=== PATIENT | male | born 1985 | race Caucasian/White ===

== ENCOUNTER 2018-11-14 10:56 | Emergency (ER) | payer OTHER ==
[~2018-11-14] VITALS: Ht 170.2 cm; Wt 72.7 kg
[2018-11-14 11:04] VITALS: Ht 170.2 cm; Wt 72.7 kg
[2018-11-14] MEDS ORDERED: ACETAMINOPHEN 500 MG TAB PO STA (11:55)
[2018-11-14] MEDS ORDERED: ACET500C5 PO (13:11)
--- NOTE | 2018-11-14 13:20 | ERD ---
ER Documentation Chief Complaint Chief Complaint MECHANICAL FALL X 2 DAYS AGOPAIN LEFT KNEE AND ANKLE HPI Patient is a 33-year-old male with history of homelessness and addiction problems brought in by sister who presents to the ER for concerns of left ankle pain and knee pain. Patient states he fell. Per patient's sister, patient showed up at her house earlier today. Patient reported that he had knee and ankle pain, a sister brought him to the ER. Patient sister states that the patient has been homeless for 3 years. Patient often disappears. Patient's sister states she will take him home today and help him clean up. She is requesting that he be given resources for substance abuse and would like to speak to a social work job titles. Patient has no fevers or chills. Patient has no chest pain or shortness of breath. Patient denies any head injuries. Per patient's sister, patient is acting appropriately except for his pain to his left knee and ankle. ROS All systems reviewed and are negative except as per history of present illness. Medications Home Meds Active Scripts Acetaminophen* (Tylophen*) 500 Mg Capsule, 1 CAP PO Q6H PRN for PAIN AND OR E LEVATED TEMP, #20 CAP Prov:ESPERANZA CALLES PA-C 11/14/18 Allergies Allergies: Coded Allergies: No Known Allergy (Unverified , 11/14/18) PMhx/Soc Medical and Surgical Hx: pt denies Medical Hx, pt denies Surgical Hx Hx Alcohol Use: No Hx Substance Use: No Hx Tobacco Use: No Smoking Status: Never smoker FmHx Family History: No diabetes Physical Exam Vitals Vital Signs Date Temp Pulse Resp B/P (MAP) Pulse Ox O2 O2 Flow FiO2 Time Delivery Rate 11/14/18 37.0 12:06 11/14/18 98.6 105 18 132/69 98 11:04 (90) Physical Exam GENERAL: Disheveled male. Appears in no acute distress. Speaking in full sentences, answering questions appropriately. HEAD: Normocephalic, atraumatic. ENT: Moist mucous membranes. No uvula deviation. No kissing tonsils. NECK: Supple. No meningismus. Normal range of motion of the neck. LUNG: Clear to auscultation bilaterally. No rhonchi, wheezing, rales or coarse breath sounds. HEART: Regular rate and rhythm. No murmurs, rubs or gallops. EXTREMITIES: Equal pulses bilaterally. No peripheral clubbing, cyanosis or edema. No unilateral leg swelling. NEUROLOGIC: Alert and oriented. Moving all four extremities without any difficulty. Normal speech. LLE: Swelling noted to the ankle. Tender to percussion bilateral medial and lateral ankle. Nontender to palpation over the proximal tibia/fibula, midfoot, fifth metatarsal. Mild ecchymosis noted to the anterior knee. Tender to palpation over the anterior knee. Sensation intact to light touch. Neurovascularly intact. (Able to plantarflex, dorsiflex, greta foot, invert foot, raise big toe.) 2+ DP and DT pulses. Results 24 hrs Current Medications Medications Dose Sig/Ankur Start Time Status Last (Trade) Ordered Route PRN Stop Time Admin Dose Reason Admin 1,000 mg ONCE STAT 11/14/18 DC 11/14/18 Acetaminophen PO 11:55 12:06 (Tylenol 11/14/18 11:56 Tab) Procedures/MDM ED COURSE: The patient was stable throughout ED course. I kept the patient and/or family informed of laboratory and diagnostic imaging results throughout the ED course. DIAGNOSTIC IMAGING: Read by radiologist. DIAGNOSTIC IMAGING REPORT Patient: GRADY GARCÍA : 1985 Age: 33 Sex: M MR #: [id number] DOS: 11/14/18 1155 Ordering MD: ESPERANZA CALLES PA-C Location: [facility] Room/Bed: PROCEDURE: XR Ankle. CLINICAL INDICATION: left ankle pain TECHNIQUE: 3 views of the left ankle were performed. COMPARISON: None. FINDINGS: No acute fracture or dislocation. Talar dome and ankle mortise appear intact. Moderate soft tissue swelling. Small tibiotalar joint effusion. IMPRESSION: Soft tissue swelling without evidence of acute fracture or dislocation. RPTAT:AAJJ Physician Claudio Date Time Electronically viewed and signed by Physician Claudio on 11/14/2018 12:59 RF/ CC: ESPERANZA CALLES PA-C [phone] Patient: GRADY GARCÍA : 1985 Age: 33 Sex: M MR #: [id number] DOS: 11/14/18 1155 Ordering MD: ESPERANZA CALLES PA-C Location: [facility] Room/Bed: PROCEDURE: Left knee x-ray CLINICAL INDICATION: left knee pain TECHNIQUE: AP, lateral and oblique views of the left knee were obtained. COMPARISON: None FINDINGS: No evidence of acute fracture or dislocation. No significant arthropathy or erosive changes. No significant joint effusion. Mild to moderate soft tissue swelling. IMPRESSION: Soft tissue swelling without evidence of acute fracture. RPTAT:AAJJ Physician Claudio Date Time Electronically viewed and signed by Physician Claudio on 11/14/2018 13:00 RF/ CC: ESPERANZA CALLES PA-C [id number] MEDICATIONS GIVEN: Tylenol MEDICAL DECISION MAKING: This is a 33-year-old homeless male with past medical history of addiction problems who presents the ER with his sister for concerns of left ankle and knee pain. Patient showed up to his sister's daughter reporting that he had the symptoms. Vital signs were reviewed. Patient was afebrile. Patient sister is requesting that patient be provided with homeless and addiction resources. Social work was consulted. Social work provided appropriate resources. Social work states that patient's sister will take the patient home and assist him. X-ray imaging of the left ankle and knee were unremarkable. Soft tissue swelling noted. patient's sister was given Devaughn bandages which she will applied to the patient's knee and ankle upon the patient returned home after he cleans up. Follow-up with payroll and benefits specialist advised as I am unable to rule any ligament or tendon injuries at this time. Low suspicion for septic joint. PRESCRIPTIONS: Tylenol DISCHARGE: At this time, patient is stable for discharge and outpatient management. RICE therapy and ROM exercises were advised to avoid stiffness. I have instructed the patient to follow-up with his/her primary care physician in 1-2 days. I have discussed with the patient the possibility of needing to see an payroll and benefits specialist for further workup and imaging if the pain persists. I have instructed the patient to promptly return to the ER for any new or worsening symptoms including increased pain, swelling, redness, warmth or fever. The patient and/or family expressed understanding of and agreement with this plan. All questions were answered. Home care instructions were provided. Disclaimer: Inadvertent spelling and grammatical errors are likely due to EHR/dictation software use and do not reflect on the overall quality of patient care. Also, please note that the electronic time recorded on this note does not necessarily reflect the actual time of the patient encounter. Departure Diagnosis: Primary Impression: Knee pain, left Chronicity: acute Qualified Codes: M25.562 - Pain in left knee Additional Impression: Ankle pain, left Chronicity: acute Qualified Codes: M25.572 - Pain in left ankle and joints of left foot Condition: Fair Patient Instructions: Sprain, Ankle, No X-Ray Referrals: [facility], [facility] YOU HAVE RECEIVED A MEDICAL SCREENING EXAM AND THE RESULTS INDICATE THAT YOU DO NOT HAVE A CONDITION THAT REQUIRES URGENT TREATMENT IN THE EMERGENCY DEPARTMENT. FURTHER EVALUATION AND TREATMENT OF YOUR CONDITION CAN WAIT UNTIL YOU ARE SEEN IN YOUR DOCTORS OFFICE WITHIN THE NEXT 1-2 DAYS. IT IS YOUR RESPONSIBILITY TO MAKE AN APPOINTMENT FOR FOLOW-UP CARE. IF YOU HAVE A PRIMARY DOCTOR --you should call your primary doctor and schedule an appointment IF YOU DO NOT HAVE A PRIMARY DOCTOR YOU CAN CALL OUR PHYSICIAN REFERRAL HOTLINE AT IF YOU CAN NOT AFFORD TO SEE A PHYSICIAN YOU CAN CHOSE FROM THE FOLLOWING [facility] [address] [facility] [address] [facility] [address] [facility] [address] [facility] [address] [facility]. [facility]. [address] [facility]. [facility] YOU HAVE RECEIVED A MEDICAL SCREENING EXAM AND THE RESULTS INDICATE THAT YOU DO NOT HAVE A CONDITION THAT REQUIRES URGENT TREATMENT IN THE EMERGENCY DEPARTMENT. FURTHER EVALUATION AND TREATMENT OF YOUR CONDITION CAN WAIT UNTIL YOU ARE SEEN IN YOUR DOCTORS OFFICE WITHIN THE NEXT 1-2 DAYS. IT IS YOUR RESPONSIBILITY TO MAKE AN APPOINTMENT FOR FOLOW-UP CARE. IF YOU HAVE A PRIMARY DOCTOR --you should call your primary doctor and schedule and appointment IF YOU DO NOT HAVE A PRIMARY DOCTOR YOU CAN CALL OUR PHYSICIAN REFERRAL HOTLINE AT . IF YOU CAN NOT AFFORD TO SEE A PHYSICIAN YOU CAN CHOSE FROM THE FOLLOWING [facility] INSTITUTIONS: [facility] [address] [place] [address] [facility] [address] [place] [address] [facility] [address] [place] [address] Additional Instructions: Call your primary care doctor TOMORROW for an appointment during the next 1-2 days.See the doctor sooner or return here if your condition worsens before your appointment time. ESPERANZA CALLES PA-C Nov 14, 2018 13:20
[2018-11-14 13:50] VITALS: BP 129/67; PULSE 88; RESP 18
== END 2018-11-14 13:50 | disposition home or self-care (01) ==
LOC: FTE 10:56
DX: S80.02XA Contusion of left knee, initial encounter (principal); S99.912A Unspecified injury of left ankle, initial encounter; W18.39XA Other fall on same level, initial encounter; Y92.9 Unspecified place or not applicable
CPT/HCPCS: 73562; 73610; Z7502; Z7610